=== PATIENT | female | born 1995 | race Caucasian/White ===

== ENCOUNTER 2020-11-11 02:59 | Inpatient (IN) | payer OTHER ==
[2020-11-11 03:31] LABS: HCT 35.7 % (37.0-47.0); HGB 11.6 g/dl (12.5-16.0); MCH 25.3 pg (25.0-31.0); MCHC 32.5 g/dL (32.0-36.0); MCV 77.9 fL (78.0-100.0); MPV 9.6 fL (6.0-9.5); RBC 4.58 M/uL (4.20-5.40); RDW 14.3 % (11.5-14.0); WBC 9.4 K/uL (4.0-10.5)
[2020-11-11 06:18] LABS: BILIRUBIN NEGATIVE (NEGATIVE); BLOOD NEGATIVE Ery/uL (NEGATIVE); CLARITY CLEAR (CLEAR); COLOR YELLOW (YELLOW); GLUCOSE (U) NORMAL (NORMAL); LEUKOCYTES NEGATIVE Leu/uL (NEGATIVE); NITRITE NEGATIVE (NEGATIVE); PROTEIN NEGATIVE (NEGATIVE); SPECIFIC GRAVITY 1.025 (1.001-1.030); UROBILINOGEN 0.2 mg/dL (0.2-1.0); pH 6.5 (5.0-9.0)
[2020-11-12 05:51] LABS: HCT 28.7 % (37.0-47.0); HGB 9.2 g/dl (12.5-16.0); MCH 25.3 pg (25.0-31.0); MCHC 32.1 g/dL (32.0-36.0); MCV 78.8 fL (78.0-100.0); MPV 9.5 fL (6.0-9.5); RBC 3.64 M/uL (4.20-5.40); RDW 14.6 % (11.5-14.0); WBC 7.9 K/uL (4.0-10.5)
[2020-11-13 11:19] LABS: BASOPHIL 0.5 % (0-2); EOSINOPHIL 2.8 % (0-5); HCT 27.8 % (37.0-47.0); HGB 8.9 g/dl (12.5-16.0); LYMPHOCYTE 13.3 % (15-48); MCH 25.1 pg (25.0-31.0); MCV 78.3 fL (78.0-100.0); MPV 9.5 fL (6.0-9.5); NEUTROPHIL 75.4 % (41-80); NRBC 0; PLT 204 K/uL (150-400); RBC 3.55 M/uL (4.20-5.40); RDW 14.6 % (11.5-14.0); WBC 7.4 K/uL (4.0-10.5)
[2020-11-13 11:24] LABS: ALBUMIN 1.7 g/dL (3.4-5.0); BILIRUBIN - TOTAL 0.1 mg/dL (0.2-1.0); BUN/CREAT RATIO (CALC) 11.1 RATIO; CREATININE 0.63 mg/dL (0.51-0.95); GLOBULIN (CALCULATION) 3.7 g/dL; POTASSIUM 3.8 mmol/L (3.5-5.1); TOTAL PROTEIN 5.4 g/dL (6.4-8.2)
[2020-11-13 11:30] LABS: NEUTROPHILS(M) 77 % (41-80); TOTAL CELL COUNT 100
[2020-11-13 11:31] LABS: BASOPHIL(M) 1 % (0-2); EOSINOPHIL(M) 3 % (0-5); LYMPHOCYTE(M) 14 % (15-48); MONOCYTE(M) 4 % (0-12); POLYCHROMASIA SLIGHT; VARIANT LYMPHOCYTE 1
[2020-11-13 11:32] LABS: ANISOCYTOSIS SLIGHT; PLATELET ESTIMATE NORMAL; PLATELET MORPHOLOGY NORMAL
== END 2020-11-13 15:59 | disposition home or self-care (01) | DRG 787 ==
LOC: FOD 02:59 → FOB 03:00 → FOD 03:14 → FOB 03:15
PROVIDERS: Specialist; ADMIT Obstetrics & Gynecology
PROC: 10D00Z1 Extraction of Products of Conception, Low, Open Approach (ICD-10-PCS; principal; 2020-11-11 04:00)
DX: O36.63X0 Maternal care for excessive fetal growth, third trimester, not applicable or unspecified (principal); D62 Acute posthemorrhagic anemia; Z37.0 Single live birth; Z3A.38 38 weeks gestation of pregnancy; O99.214 Obesity complicating childbirth; O99.344 Other mental disorders complicating childbirth; F32.9 Major depressive disorder, single episode, unspecified; O24.429 Gestational diabetes mellitus in childbirth, unspecified control; O99.03 Anemia complicating the puerperium; Z86.16 Personal history of COVID-19; Z20.822 Contact with and (suspected) exposure to COVID-19
CPT/HCPCS: 36415; 80053; 81003; 82947; 86850; 86900; 86901; 87088; J0456; J0690; J1200; J1650; J1885; J2210; J2274; J2370; J2405; J2550; J2590; J2916; J3010; J3105; J7050; J7120

== ENCOUNTER 2022-01-16 12:59 | Emergency (ER) | payer OTHER ==
[2022-01-16 16:17] LABS: BASOPHIL 0.6 % (0-2); EOSINOPHIL 0.5 % (0-5); HCT 36.1 % (37.0-47.0); HGB 11.6 g/dl (12.5-16.0); LYMPHOCYTE 12.8 % (15-48); MCH 26.9 pg (25.0-31.0); MCHC 32.1 g/dL (32.0-36.0); MCV 83.6 fL (78.0-100.0); MONOCYTE 6.7 % (0-12); MPV 9.7 fL (6.0-9.5); NEUTROPHIL 79.1 % (41-80); NRBC 0; PLT 292 K/uL (150-400); RBC 4.32 M/uL (4.20-5.40); RDW 13.9 % (11.5-14.0); WBC 10.8 K/uL (4.0-10.5)
[2022-01-16 16:46] LABS: BUN/CREAT RATIO (CALC) 9.3 RATIO; CREATININE 0.75 mg/dL (0.51-0.95); POTASSIUM 3.9 mmol/L (3.5-5.1)
[2022-01-16 20:47] LABS: BASOPHIL 0.5 % (0-2); EOSINOPHIL 0.7 % (0-5); HCT 31.1 % (37.0-47.0); HGB 10.1 g/dl (12.5-16.0); LYMPHOCYTE 19.5 % (15-48); MCHC 32.5 g/dL (32.0-36.0); MCV 83.2 fL (78.0-100.0); MPV 9.5 fL (6.0-9.5); NEUTROPHIL 71.9 % (41-80); NRBC 0; PLT 246 K/uL (150-400); RBC 3.74 M/uL (4.20-5.40); WBC 7.6 K/uL (4.0-10.5)
== END 2022-01-16 21:33 | disposition home or self-care (01) ==
LOC: FER 12:59
PROVIDERS: Nurse Practitioner Family
DX: O20.0 Threatened abortion (principal); Z3A.01 Less than 8 weeks gestation of pregnancy; Z28.310 Unvaccinated for COVID-19
CPT/HCPCS: 36415; 76830; 80048; 84702; 85025; 86850; 86900; 86901; J2405; J7030

== ENCOUNTER → 2022-02-05 | Day surgery (SDC) | payer OTHER ==
[~2022-02-05] VITALS: Ht 167.6 cm; Wt 132.4 kg
[~2022-02-05] MED LIST: ADDERALL 15 MG15 MG PO; PRISTIQ ER50 MG PO; SAXENDA
[2022-02-05 10:28] LABS: HCT 34.3 % (37.0-47.0); HGB 10.8 g/dl (12.5-16.0); MCH 25.7 pg (25.0-31.0); MCHC 31.5 g/dL (32.0-36.0); MCV 81.7 fL (78.0-100.0); MPV 9.2 fL (6.0-9.5); RBC 4.2 M/uL (4.20-5.40); RDW 13.2 % (11.5-14.0); WBC 5.1 K/uL (4.0-10.5)
== END | disposition home or self-care (01) ==
LOC: FAS 09:54
PROVIDERS: Obstetrics & Gynecology
DX: O03.4 Incomplete spontaneous abortion without complication (principal); Z20.822 Contact with and (suspected) exposure to COVID-19; F41.9 Anxiety disorder, unspecified; F90.9 Attention-deficit hyperactivity disorder, unspecified type; Z79.899 Other long term (current) drug therapy
CPT/HCPCS: 36415; 86850; 86900; 86901; J1100; J1170; J1885; J2250; J2405; J2704; J3010; J7050; J7120; U0002